=== PATIENT | female | born 1985 | race Caucasian/White ===

== ENCOUNTER 2017-06-22 08:42 | Emergency (ER) | payer MEDICAID, OTHER ==
[~2017-06-22] VITALS: Ht 157.5 cm; Wt 81.6 kg
--- NOTE | 2017-06-22 08:55 | NUR ---
[id number] FROM [place] DT ABDOMINAL PAIN 05/23, SHARP X 3 DAYS. PATIENT'S VSS. AFEBRILE.
[2017-06-22 09:37] LABS: BASOPHILS # (AUTO) 0.1 /CMM (0.0-0.2); BASOPHILS % (AUTO) 1.1 % (0.0-2.0); EOSINOPHILS % (AUTO) 0.2 % (0.0-6.0); HEMATOCRIT 42 % (33-45); HEMOGLOBIN 14.2 g/dL (11.5-14.8); LYMPHOCYTES # (AUTO) 1.5 /CMM (0.8-4.8); LYMPHOCYTES % (AUTO) 14.1 % (20.0-44.0); MEAN CORPUSCULAR HEMOGLOBIN 31 PG (26.0-33.0); MEAN CORPUSCULAR HGB CONC 34 g/dl (31.0-36.0); MEAN CORPUSCULAR VOLUME 92 fL (82-100); MONOCYTES # (AUTO) 0.3 /CMM (0.1-1.30); MONOCYTES % (AUTO) 2.5 % (2.0-12.0); NEUTROPHILS # (AUTO) 8.4 /CMM (1.8-8.9); NEUTROPHILS % (AUTO) 82.1 % (43.0-81.0); PLATELET COUNT (AUTO) 342 /CMM (150-450); RDW COEFFICIENT OF VARIATION 14.3 (11.5-15.0); RED BLOOD CELL COUNT(AUTO) 4.59 MIL/uL (4.0-5.2); WHITE BLOOD COUNT (AUTO) 10.3 K/uL (4.3-11.0)
[2017-06-22 09:48] LABS: CALCIUM, SERUM 8.2 mg/dL (8.5-10.1); CREATININE 0.6 mg/dL (0.6-1.3); POTASSIUM 3.6 mmol/L (3.5-5.1)
[2017-06-22 09:52] LABS: BILIRUBIN,DIRECT 0.1 mg/dL (0.0-0.2); BILIRUBIN,TOTAL 0.4 mg/dL (0.2-1.0)
[2017-06-22 10:26] LABS: APPEARANCE,URINE Clear (CLEAR); BILIRUBIN,URINE Negative (NEGATIVE); BLOOD, URINE Trace-intact Ery/uL (NEGATIVE); COLOR,URINE Yellow (YELLOW); KETONES,URINE Trace (NEGATIVE); LEUKOCYTE ESTERASE ,URINE Small (NEGATIVE); NITRITE, URINE Negative (NEGATIVE); PH,URINE 6.5 (5.0-8.0); PROTEIN,URINE Negative (NEGATIVE); UGLUCOSE Negative (NEGATIVE); UROBILINOGEN,URINE 0.2 EU/dL (0.2)
[2017-06-22 10:28] LABS: BACTERIA,URINE Few /HPF (None Seen); RBC,URINE 0-2 /HPF (0-2); SQUAMOUS EPITHELIAL CELL,UR Few /HPF (None Seen); WBC,URINE 0-2 /HPF (0-3)
--- NOTE | 2017-06-22 10:46 | NUR ---
PT REFUSES CT. PT WISHES TO LEAVE, HOWEVER SHE IS ONLY A/OX1. MD AWARE. PT MOVED TO ROOM CLOSER TO NURSES STATION FOR INCREASED SUPERVISION. NURSING REMOTE [employer]GAGE UNDERWRITER NOTIFIED FOR NEED OF SITTER.
--- NOTE | 2017-06-22 11:20 | NUR ---
CALLED DIOGENES LARSON FOR EVAL ETA 1 HR
--- NOTE | 2017-06-22 11:30 | NUR ---
1:1 SITTER AT BEDSIDE
--- NOTE | 2017-06-22 14:00 | NUR ---
RESTING CALMLY, NAD NOTED. SITTER AT BEDSIDE. ALL NEEDS ATTENDED TO.
--- NOTE | 2017-06-22 15:04 | NUR ---
REPORT GIVEN TO BRENTON LARSON FOR ADMISSION
[2017-06-22 15:15] VITALS: BP 158/102
--- NOTE | 2017-06-22 15:37 | NUR ---
PT TRANSFERRED TO [facility] IN STABLE CONDITION VIA TAXI. Addendum: 06/22/17 at 1546 by HFOX IV removed. Catheter intact and site benign. Pressure and 4x4 applied to site. No bleeding noted.
== END 2017-06-22 15:48 ==
LOC: ER 08:46
DX: F10.10 Alcohol abuse, uncomplicated (principal); F15.10 Other stimulant abuse, uncomplicated; F31.9 Bipolar disorder, unspecified; F17.200 Nicotine dependence, unspecified, uncomplicated; Z59.0 Homelessness
CPT/HCPCS: 36415; 80048; 80076; 80305; 81001; 84703 ×2; 85025; 96361; 96374; 96375; 99285; A4606; G0480; J2060; J2405 ×2; J7030 ×2; J7050; Q9967; Z7610; 81000-TC

== ENCOUNTER 2020-03-10 11:56 | Emergency (ER) | payer MEDICAID, OTHER ==
[~2020-03-10] VITALS: Ht 162.6 cm; Wt 81.6 kg
--- NOTE | 2020-03-10 12:00 | NUR ---
PT SUAL FROM THE STREET C/O ETOH, PT IS AAOX2, NOT IN RESPIRATORY DISTRESS, HOOKED TO [employer], KEPT RESTED AND COMFORTABLE, WILL CONTINUE TO MONITOR.
--- NOTE | 2020-03-10 12:10 | NUR ---
SEEN AND EXAMINED BY .
[2020-03-10 13:26] VITALS: BP 119/72
--- NOTE | 2020-03-10 16:11 | NUR ---
Patient discharged to home in stable condition. Written and verbal after care instructions given. Patient verbalizes understanding of instruction.
== END 2020-03-10 16:12 | disposition home or self-care (01) ==
LOC: ER 12:01
DX: F10.10 Alcohol abuse, uncomplicated (principal); F31.9 Bipolar disorder, unspecified; Y90.9 Presence of alcohol in blood, level not specified; Z59.0 Homelessness

== ENCOUNTER 2020-03-10 19:48 | Emergency (ER) | payer MEDICAID ==
[~2020-03-10] VITALS: Ht 162.6 cm; Wt 81.6 kg
--- NOTE | 2020-03-10 20:04 | NUR ---
[id number] FROM [facility]; ETOH, WAS HERE FOR SAME C/C, D/C AT 1611 TODAY
[2020-03-10 20:37] LABS: BASOPHILS % (AUTO) 0.7 % (0.0-2.0); HEMATOCRIT 39 % (33-45); HEMOGLOBIN 13.1 g/dL (11.5-14.8); LYMPHOCYTES # (AUTO) 2.4 /CMM (0.8-4.8); MEAN CORPUSCULAR HGB CONC 34 g/dl (31.0-36.0); MEAN CORPUSCULAR VOLUME 101 fL (82-100); MONOCYTES # (AUTO) 0.3 /CMM (0.1-1.30); MONOCYTES % (AUTO) 5.1 % (2.0-12.0); NEUTROPHILS # (AUTO) 3.3 /CMM (1.8-8.9); NEUTROPHILS % (AUTO) 54.2 % (43.0-81.0); PLATELET COUNT (AUTO) 348 /CMM (150-450); RED BLOOD CELL COUNT(AUTO) 3.83 MIL/uL (4.0-5.2)
[2020-03-10 20:44] LABS: CALCIUM, SERUM 7.8 mg/dL (8.5-10.1); CREATININE 0.7 mg/dL (0.6-1.3); POTASSIUM 3.5 mmol/L (3.5-5.1)
[2020-03-10 20:51] LABS: ALBUMIN 3.4 g/dL (3.4-5.0); BILIRUBIN,DIRECT 0.1 mg/dL (0.0-0.2); BILIRUBIN,TOTAL 0.2 mg/dL (0.2-1.0)
[2020-03-10 21:21] LABS: SALICYLATE 0.5 mg/dL (2.8-20.0)
[2020-03-11 00:50] LABS: APPEARANCE,URINE Slightly Cloudy (CLEAR); BILIRUBIN,URINE Negative (NEGATIVE); BLOOD, URINE Negative Ery/uL (NEGATIVE); COLOR,URINE Yellow (YELLOW); KETONES,URINE Negative (NEGATIVE); LEUKOCYTE ESTERASE ,URINE Trace (NEGATIVE); NITRITE, URINE Positive (NEGATIVE); PH,URINE 6.5 (5.0-8.0); PROTEIN,URINE Negative (NEGATIVE); UGLUCOSE Negative (NEGATIVE); UROBILINOGEN,URINE 0.2 EU/dL (0.2)
--- NOTE | 2020-03-11 01:00 | NUR ---
PT AMBULATED TO THE RESTROOM. PT UNABLE TO PROVIDE URINE AT THIS TIME
--- NOTE | 2020-03-11 01:15 | NUR ---
URINE COLLECTED AND SENT TO LAB
[2020-03-11 01:17] LABS: BACTERIA,URINE Few /HPF (None Seen); RBC,URINE 0-2 /HPF (0-2); SQUAMOUS EPITHELIAL CELL,UR Moderate /HPF (None Seen); WBC,URINE 0-2 /HPF (0-3)
--- NOTE | 2020-03-11 02:00 | NUR ---
Era putnam in [facility] - 03/11/20 at 0622 by NIKHIL PT AMBULATED TO THE RESTROOM. PT UNABLE TO PROVIDE URINE AT THIS TIME
--- NOTE | 2020-03-11 06:20 | NUR ---
PT RESTING COMFORTABLY IN BED. VSS. NO ACUTE DISTRESS NOTED. SITTER AT BEDSIDE FOR SAFETY
--- NOTE | 2020-03-11 08:00 | NUR ---
patient vertbalized "i am not suicidal". made aware
[2020-03-11] MEDS ORDERED: ACETAMINOPHEN ES 500 MG TABLET ONE (08:53)
[2020-03-11 09:24] VITALS: BP 125/71
--- NOTE | 2020-03-11 09:24 | NUR ---
Patient given written and verbal discharge instructions. Patient verbalizes understanding of instructions. Patient is ambulatory with steady gait. Refuses offer of longterm placement. Patient given list of available shelters in surrounding area. food and tap card provided.
[2020-03-11] MEDS ORDERED: ACETAMINOPHEN ES 500 MG TABLET PO ONE (09:30)
== END 2020-03-11 09:24 | disposition home or self-care (01) ==
LOC: ER 19:49
DX: R45.851 Suicidal ideations (principal); F10.129 Alcohol abuse with intoxication, unspecified; F31.9 Bipolar disorder, unspecified; Y90.5 Blood alcohol level of 100-119 mg/100 ml; Z59.0 Homelessness
CPT/HCPCS: 36415 ×2; 80048; 80076; 80305; 80307 ×2; 80329; 81001; 84703; 85025; 99284; G0480; 81000-TC

== ENCOUNTER 2021-02-02 21:38 | Emergency (ER) | payer MEDICAID ==
[~2021-02-02] VITALS: Ht 157.5 cm; Wt 83.5 kg
--- NOTE | 2021-02-02 21:53 | NUR ---
BIBRA FROM THE STREETS, C/O HAVING DOG BITE FOR THE PAST 3 DAYS. PLACED IN BED, ON MONITOR,AND PULSE OX. AWAITING ER MD FOR EVAL AND ORDERS.
[2021-02-02 22:30] LABS: BASOPHILS % (AUTO) 0.6 % (0.0-2.0); EOSINOPHILS % (AUTO) 1.6 % (0.0-6.0); HEMATOCRIT 37 % (33-45); HEMOGLOBIN 12.4 g/dL (11.5-14.8); LYMPHOCYTES # (AUTO) 3.1 /CMM (0.8-4.8); LYMPHOCYTES % (AUTO) 46.3 % (20.0-44.0); MEAN CORPUSCULAR HGB CONC 34 g/dl (31.0-36.0); MEAN CORPUSCULAR VOLUME 98 fL (82-100); MONOCYTES # (AUTO) 0.4 /CMM (0.1-1.30); NEUTROPHILS # (AUTO) 3.1 /CMM (1.8-8.9); NEUTROPHILS % (AUTO) 45.5 % (43.0-81.0); PLATELET COUNT (AUTO) 280 /CMM (150-450); RED BLOOD CELL COUNT(AUTO) 3.79 MIL/uL (4.0-5.2); WHITE BLOOD COUNT (AUTO) 6.8 K/uL (4.3-11.0)
[2021-02-02 22:52] LABS: ALANINE AMINOTRANSFERASE 33 U/L (12-78); ALBUMIN 3.5 g/dL (3.4-5.0); ALCOHOL, BLOOD 332 mg/dL (0-0); ALKALINE PHOSPHATASE 84 U/L (46-116); ASPARTATE AMINOTRANSFERASE 42 U/L (15-37); BILIRUBIN,DIRECT 0.1 mg/dL (0.0-0.2); BILIRUBIN,TOTAL 0.3 mg/dL (0.2-1.0); CALCIUM, SERUM 8.6 mg/dL (8.5-10.1); CARBON DIOXIDE 28 mmol/L (21-32); CHLORIDE 106 mmol/L (98-107); CREATININE 0.5 mg/dL (0.6-1.3); GLUCOSE 103 mg/dL (74-106); SODIUM SERUM 142 mmol/L (136-145); TOTAL PROTEIN, SERUM 7.7 g/dL (6.4-8.2); UREA NITROGEN, BLOOD 7 mg/dL (7-18)
[2021-02-02 22:57] LABS: ACETAMINOPHEN < 2 ug/ml (10-30)
[2021-02-02 23:14] LABS: BILIRUBIN,URINE NEGATIVE (NEGATIVE); COLOR,URINE YELLOW (YELLOW); LEUKOCYTE ESTERASE ,URINE NEGATIVE (NEGATIVE); NITRITE, URINE NEGATIVE (NEGATIVE); PROTEIN,URINE NEGATIVE (NEGATIVE); UGLUCOSE NEGATIVE (NEGATIVE); UROBILINOGEN,URINE 0.2 EU/dL (0.2)
[2021-02-02 23:50] LABS: BACTERIA,URINE Few /HPF (None Seen); SQUAMOUS EPITHELIAL CELL,UR Few /HPF (None Seen)
--- NOTE | 2021-02-03 06:47 | NUR ---
RESTING IN BED, REMAINS ON MONITOR.
--- NOTE | 2021-02-03 09:00 | NUR ---
PT STATED SHE IS NOT SUICIDAL AND WANTS TO BE DISCHARGED. ER MD AWARE.
--- NOTE | 2021-02-03 09:03 | NUR ---
PT ABLE TO AMBULATE STRAIGHT WITHOUT ASSISTANCE. SAMSON GONZALEZ AWARE.
[2021-02-03 09:06] VITALS: BP 127/71
--- NOTE | 2021-02-03 09:06 | NUR ---
Patient given written and verbal discharge instructions. Patient verbalizes understanding of instructions. Patient is ambulatory with steady gait. Refuses offer of [facility] placement. Patient given list of available shelters in surrounding area.
== END 2021-02-03 09:07 | disposition home or self-care (01) ==
LOC: ER 21:40
DX: R45.851 Suicidal ideations (principal); F31.9 Bipolar disorder, unspecified; Z59.0 Homelessness; Z20.822 Contact with and (suspected) exposure to COVID-19; F10.129 Alcohol abuse with intoxication, unspecified; Y90.8 Blood alcohol level of 240 mg/100 ml or more; F19.10 Other psychoactive substance abuse, uncomplicated; Z91.14 Patient's other noncompliance with medication regimen
CPT/HCPCS: 36415; 80048; 80076; 80299; 80307; 80320; 81001; 84703; 85025; 87086; 87426; 99285; C9803; G0480

== ENCOUNTER 2021-02-06 01:41 | Emergency (ER) | payer MEDICAID ==
[~2021-02-06] VITALS: Ht 160 cm; Wt 83.5 kg
--- NOTE | 2021-02-06 01:45 | NUR ---
ELISABETH SALCEDO FROM [facility] C/O GEN ABD PAIN. NO IMMEDIATE SIGNS OF DISTRESS NOTED. PT TO ER ROOM AND CONNECTED TO MONITOR. PT VITAL SIGNS STABLE. PT STATES NAUSEA BUT NO VOMITING NOTED. WILL CONT TO MONITOR PT.
[2021-02-06] MEDS ORDERED: DICYCLOMINE HCL 10 MG/5 ML UDC ONE (02:45)
[2021-02-06] MEDS ORDERED: LIDOCAINE VISCOUS 2% UD 15 ML UDC ONE (02:45)
[2021-02-06] MEDS ORDERED: MAG HYDROX/AL HYDROX/SIMETH 30 ML UDC ONE (02:46)
[2021-02-06] MEDS ORDERED: ONDANSETRON 4 MG TAB.RAPDIS ONE (02:46)
[2021-02-06 02:58] LABS: BASOPHILS % (AUTO) 0.9 % (0.0-2.0); EOSINOPHILS % (AUTO) 2.3 % (0.0-6.0); HEMATOCRIT 39 % (33-45); HEMOGLOBIN 13.2 g/dL (11.5-14.8); LYMPHOCYTES # (AUTO) 2.8 /CMM (0.8-4.8); LYMPHOCYTES % (AUTO) 62.2 % (20.0-44.0); MEAN CORPUSCULAR HGB CONC 34 g/dl (31.0-36.0); MEAN CORPUSCULAR VOLUME 97 fL (82-100); MONOCYTES # (AUTO) 0.3 /CMM (0.1-1.30); MONOCYTES % (AUTO) 5.6 % (2.0-12.0); NEUTROPHILS # (AUTO) 1.3 /CMM (1.8-8.9); PLATELET COUNT (AUTO) 312 /CMM (150-450); RED BLOOD CELL COUNT(AUTO) 3.99 MIL/uL (4.0-5.2); WHITE BLOOD COUNT (AUTO) 4.6 K/uL (4.3-11.0)
[2021-02-06 03:00] LABS: BILIRUBIN,URINE NEGATIVE (NEGATIVE); COLOR,URINE YELLOW (YELLOW); LEUKOCYTE ESTERASE ,URINE NEGATIVE (NEGATIVE); NITRITE, URINE NEGATIVE (NEGATIVE); PROTEIN,URINE NEGATIVE (NEGATIVE); UGLUCOSE NEGATIVE (NEGATIVE)
[2021-02-06] MEDS ORDERED: DICYCLOMINE HCL 10 MG/5 ML UDC PO ONE (03:00)
[2021-02-06] MEDS ORDERED: ONDANSETRON 4 MG TAB.RAPDIS SL ONE (03:00)
[2021-02-06] MEDS ORDERED: LIDOCAINE VISCOUS 2% UD 15 ML UDC MM ONE (03:00)
[2021-02-06] MEDS ORDERED: MAG HYDROX/AL HYDROX/SIMETH 30 ML UDC PO ONE (03:00)
[2021-02-06 03:10] LABS: ALCOHOL, BLOOD 267 mg/dL (0-0)
[2021-02-06 03:18] LABS: ACETAMINOPHEN < 2 ug/ml (10-30)
[2021-02-06 03:52] LABS: BACTERIA,URINE None seen /HPF (None Seen); RBC,URINE 0-2 /HPF (0-2); SQUAMOUS EPITHELIAL CELL,UR Few /HPF (None Seen)
[2021-02-06 03:55] LABS: POTASSIUM 3.4 mmol/L (3.5-5.1); THYROID STIMULATING HORMONE 1.087 uIU/mL (0.358-3.74)
[2021-02-06 03:56] LABS: CALCIUM, SERUM 8.7 mg/dL (8.5-10.1)
[2021-02-06 03:57] LABS: BILIRUBIN,DIRECT 0.1 mg/dL (0.0-0.2); BILIRUBIN,TOTAL 0.2 mg/dL (0.2-1.0); CREATININE 0.5 mg/dL (0.6-1.3)
[2021-02-06 03:58] LABS: ALBUMIN 3.4 g/dL (3.4-5.0)
--- NOTE | 2021-02-06 07:30 | NUR ---
ASSESSED PT ON BED AWAKE AND ALERT, NOT IN RESPIRATORY DISTRESS, V/S STABLE, KEPT RESTED AND COMFORTABLE. BREAKFAST TRAY PROVIDED. WILL CONTINUE TO MONITOR.
--- NOTE | 2021-02-06 07:42 | NUR ---
PT ABLE TO AMBULATE STRAIGHT WITHOUT ASSISTANCE GOING TO RESTROOM AND ABLE TO DO SELF CARE.
--- NOTE | 2021-02-06 08:14 | NUR ---
PT STATED SHE IS NOT SUICIDAL OR HOMICIDAL. ER MED AWARE.
--- NOTE | 2021-02-06 08:18 | NUR ---
Patient given written and verbal discharge instructions. Patient verbalizes understanding of instructions. Patient is ambulatory with steady gait. Refuses offer of long-term placement. Patient given list of available shelters in surrounding area.
[2021-02-06 08:19] VITALS: BP 105/62
== END 2021-02-06 08:19 | disposition home or self-care (01) ==
LOC: ER 01:43
DX: F31.9 Bipolar disorder, unspecified (principal); F41.9 Anxiety disorder, unspecified; R10.9 Unspecified abdominal pain; Z59.0 Homelessness; F10.129 Alcohol abuse with intoxication, unspecified; Y90.8 Blood alcohol level of 240 mg/100 ml or more; F15.20 Other stimulant dependence, uncomplicated; F17.210 Nicotine dependence, cigarettes, uncomplicated; Z20.822 Contact with and (suspected) exposure to COVID-19
CPT/HCPCS: 36415; 80048; 80076; 80143; 80307; 80320; 81001; 83690; 84443; 84703; 85025; 87426; 99284; C9803; Q0162; G0480

== ENCOUNTER 2021-08-08 20:29 | Emergency (ER) | payer MEDICAID ==
[~2021-08-08] VITALS: Ht 162.6 cm; Wt 68.0 kg
--- NOTE | 2021-08-08 20:38 | NUR ---
PT [id number] C/O ETOH. PATIENT AND ORIENTED X3. AMBULATORY WITH NON LABORED BREATHING. PATIENT PLACED IN BED 13 ON A MONITOR AND POX.
--- NOTE | 2021-08-08 20:51 | NUR ---
URINE COLLECTED AND SENT TO LAB
--- NOTE | 2021-08-08 21:12 | NUR ---
LAB AT BEDSIDE
--- NOTE | 2021-08-08 21:17 | NUR ---
COVID SWAB COLLECTED AND SENT TO LAB
[2021-08-08 21:26] LABS: BASOPHILS % (AUTO) 0.7 % (0.0-2.0); EOSINOPHILS % (AUTO) 1.7 % (0.0-6.0); HEMATOCRIT 36 % (33-45); HEMOGLOBIN 11.8 g/dL (11.5-14.8); LYMPHOCYTES # (AUTO) 2.5 K/uL (0.8-4.8); LYMPHOCYTES % (AUTO) 51.1 % (20.0-44.0); MEAN CORPUSCULAR HGB CONC 33 g/dl (31.0-36.0); MEAN CORPUSCULAR VOLUME 102 fL (82-100); MONOCYTES # (AUTO) 0.5 K/uL (0.1-1.30); MONOCYTES % (AUTO) 10.7 % (2.0-12.0); NEUTROPHILS # (AUTO) 1.8 K/uL (1.8-8.9); NEUTROPHILS % (AUTO) 35.8 % (43.0-81.0); PLATELET COUNT (AUTO) 257 K/uL (150-450); RED BLOOD CELL COUNT(AUTO) 3.53 MIL/uL (4.0-5.2)
[2021-08-08 21:40] LABS: ALANINE AMINOTRANSFERASE 42 U/L (12-78); ALBUMIN 3.2 g/dL (3.4-5.0); ALCOHOL, BLOOD 280 mg/dL (0-0); ALKALINE PHOSPHATASE 122 U/L (46-116); ASPARTATE AMINOTRANSFERASE 79 U/L (15-37); BILIRUBIN,DIRECT 0.1 mg/dL (0.0-0.2); BILIRUBIN,TOTAL 0.3 mg/dL (0.2-1.0); BILIRUBIN,URINE NEGATIVE (NEGATIVE); CALCIUM, SERUM 7.6 mg/dL (8.5-10.1); CARBON DIOXIDE 23 mmol/L (21-32); CHLORIDE 105 mmol/L (98-107); COLOR,URINE YELLOW (YELLOW); CREATININE 0.8 mg/dL (0.6-1.3); GLUCOSE 86 mg/dL (74-106); LEUKOCYTE ESTERASE ,URINE NEGATIVE (NEGATIVE); NITRITE, URINE NEGATIVE (NEGATIVE); POTASSIUM 3.7 mmol/L (3.5-5.1); PROTEIN,URINE NEGATIVE (NEGATIVE); SODIUM SERUM 140 mmol/L (136-145); UGLUCOSE NEGATIVE (NEGATIVE); UREA NITROGEN, BLOOD 8 mg/dL (7-18); UROBILINOGEN,URINE 0.2 EU/dL (0.2)
[2021-08-08 21:46] LABS: ACETAMINOPHEN < 2 ug/ml (10-30)
[2021-08-08 21:54] LABS: RBC,URINE 0-2 /HPF (0-2)
[2021-08-08 21:55] LABS: BACTERIA,URINE 1+ /HPF (None Seen); WBC,URINE 0-2 /HPF (0-3)
[2021-08-08 22:00] LABS: NEUTROPHILS % (MANUAL) 38 (42-76)
[2021-08-08 22:01] LABS: LYMPHOCYTES % (MANUAL) 51 % (16-48); MONOCYTES % (MANUAL) 3 % (0-11.0); REACTIVE LYMPHOCYTES 8 % (0-0)
[2021-08-09 05:22] VITALS: BP 129/82
--- NOTE | 2021-08-09 05:22 | NUR ---
Patient discharged to home in stable condition. Written and verbal after care instructions given. Patient verbalizes understanding of instruction.
== END 2021-08-09 05:22 | disposition home or self-care (01) ==
LOC: ER 20:32
DX: F10.129 Alcohol abuse with intoxication, unspecified (principal); R03.0 Elevated blood-pressure reading, without diagnosis of hypertension; Z59.01 Sheltered homelessness; F31.9 Bipolar disorder, unspecified; F17.200 Nicotine dependence, unspecified, uncomplicated; Z20.822 Contact with and (suspected) exposure to COVID-19
CPT/HCPCS: 36415; 80048; 80076; 80143; 80307; 80320; 81001; 85007; 85025; 87426; 99285; C9803; G0480